=== PATIENT | female | born 1960 | race Caucasian/White ===

== ENCOUNTER 2019-11-15 16:21 | Outpatient (REF) | payer BC, SELFPAY ==
[2019-11-18 18:57] LABS: SARS-CoV-2 RNA Undetected (Undetected); SARS-CoV-2 Specimen Source Nasopharynx
== END 2019-11-15 16:41 ==
LOC: NCHCN 16:21
PROVIDERS: PCP Family Medicine; Visit Provider Nurse Practitioner Family
DX: Z11.59 Encounter for screening for other viral diseases (principal)
CPT/HCPCS: U0003

== ENCOUNTER 2019-11-22 15:43 | Emergency (ER) | payer BC, SELFPAY ==
[2019-11-22] VITALS (18 sets, daily range): BP systolic 135–155; BP diastolic 81–125; PULSE 61–86; RESP 13–24; TEMP 36.7; O2SAT 95–99
--- NOTE | 2019-11-22 16:02 | ED.GENADUL_ITS ---
Discharge Plan Disposition Patient Disposition: HOME Condition: Stable Discharge Details Chief Complaint: Chest Pain Clinical Impression: Chest wall pain, Pain in right shoulder Primary Care Provider: Usha Woodward ED Provider: Afsaneh Yepez Home Meds and New Rx's Prescriptions: Continued multivitamin [Daily Multi-Vitamin] 1 EACH tablet 1 ea PO DAILY RF: 0 calcium carbonate-vitamin D3 [Calcium 500 With D] 1 EACH tablet 1 ea PO DAILY RF: 0 ibuprofen [Advil] 100 mg Tablet 100 mg PO Q6H PRNRF: 0 Discharge Instructions Instructions: Shoulder Pain (ED), Chest Wall Pain (ED) Additional Instructions: Take [id number] Pepcid, Prilosec or Prevacid once daily for the next 2 weeks. Alternate tylenol and motrin as needed and directed for pain. You can apply [id number] Lidoderm patches to the affected areas as directed. Call your primary care doctor's office on Monday to schedule follow-up appointment for reevaluation and for referral for outpatient stress test if symptoms persist or worsen. Return to the emergency department with any worsening or concerning symptoms. Discharge Data Discharge Date/Time-TO BE ENTERED AT DEPARTURE: 11/22/19 18:28 Discharge Physician: Afsaneh Yepez Medical Decision Making 1555 -- 58-year-old female with no significant past medical history presents with intermittent substernal and left-sided chest pain and right shoulder pain for the past 2 days. She states the symptoms are worse at night and awaken her from sleep. EKG on arrival notes a rate of 61, sinus with no acute ST ischemic changes. Patient appears somewhat anxious. Substernal and left anterior inferior chest tender to palpation. Right trapezius tender to palpation. She has no focal deficits. Lungs are clear. She has no upper abdominal tenderness. Differential diagnosis includes ACS, GERD, PUD, cholelithiasis, cholecystitis, chest wall pain, pneumonia. History and presentation not consistent with PE or dissection. 1745 --labs and imaging reviewed and unremarkable. CT negative. Heart score 1. Wells score low. Pt denies any symptoms at present. She states she mainly feels symptoms that awake her from sleep at night. Discussed that her symptoms could be due to musculoskeletal as her pain is reproducible, GI as she has right shoulder pain and pain occurring when supine at night, or possibly stress or anxiety as she has felt stressed lately as her mother in law is staying at the [facility] where there are many COVID positive patients. She feels that stress or anxiety may be contributing to her symptoms. Patient states she feels good to go home. She is advised to call her primary care doctor on Monday morning to schedule a follow-up appointment for reevaluation and for referral for outpatient stress test if symptoms persist or worsen. Usual and customary return precautions given prior to discharge. Medical Records Medical records reviewed: Yes I reviewed the patient's medical records. Imaging Data Radiologic Study: Radiologist's impression: CT Chest With Contrast Exam date and time: 11/22/2019 4:50 PM Age: 58 years old Clinical indication: Other: R shoulder pain; Chest pain TECHNIQUE: Imaging protocol: Computed tomography of the chest with intravenous contrast. Other contrast: Catheter; COMPARISON: No relevant prior studies available. FINDINGS: Lungs: There is minimal atelectasis in the dependent portion of both lower lobes. No focal area of consolidation or suspicious ground-glass opacity is demonstrated. No pulmonary nodules demonstrated. Pleural space: Unremarkable. No pneumothorax. No pleural effusion. Heart: Unremarkable. No cardiomegaly. No pericardial effusion. Mediastinum: There is a small sliding-type hiatal hernia. Pulmonary arteries: The exam is not optimized for visualization of the pulmonary arteries however there is no evidence of pulmonary embolus. Aorta: Unremarkable. No aortic aneurysm or dissection. Lymph nodes: Unremarkable. No enlarged lymph nodes. Bones/joints: Unremarkable. No acute fracture. Soft tissues: Unremarkable. IMPRESSION: No acute findings. CT Abdomen And Pelvis With Contrast Exam date and time: 11/22/2019 4:50 PM Age: 58 years old Clinical indication: Other: R shoulder pain; Chest pain TECHNIQUE: Imaging protocol: Computed tomography of the abdomen and pelvis with intravenous contrast. Other contrast: Catheter; COMPARISON: No relevant prior studies available. FINDINGS: Liver: The liver is normal. Gallbladder and bile ducts: The gallbladder is normal. Pancreas: The pancreas is normal. Spleen: The spleen is normal. Adrenals: The adrenal glands are normal. Kidneys and ureters: There is a well-circumscribed right lower pole 7 mm low-density lesion which is too small to characterize. There are multiple sub 5 mm low-density left renal lesions which are too small to characterize. No renal calculus or hydronephrosis on either side. Stomach and bowel: Unremarkable. No obstruction. No mucosal thickening. Appendix: A normal appendix is identified. Intraperitoneal space: Unremarkable. No free air. No significant fluid collection. Vasculature: The aorta is normal. Lymph nodes: Unremarkable. No enlarged lymph nodes. Bladder: Unremarkable as visualized. Reproductive: Unremarkable as visualized. Bones/joints: There is a well circumscribed 3.5 cm focus of sclerosis and prominent trabeculation in the left iliac bone most consistent with a hemangioma. Otherwise no suspicious lytic or sclerotic bone lesions are seen. Soft tissues: Unremarkable. IMPRESSION: No acute findings. Lab Data Lab results reviewed: Yes I reviewed the patient's lab results. Labs: Laboratory Tests Range/Units 11/22/19 11/22/19 11/22/19 16:10 16:10 17:12 WBC (4.4-10.8) k/cumm 5.94 RBC (4.00-5.20) m/cumm 4.97 Hgb (12.0-15.5) g/dL 15.4 Hct (36.0-46.0) % 44.9 MCV (80-95) fL 90.3 MCH (27.0-33.0) pg 31.0 MCHC (32.0-36.0) g/dL 34.3 RDW (11.7-14.6) % 13.8 Plt Count (130-400) x1000/uL 271 MPV (8.0-11.0) fL 10.1 Immature Gran % % 0.2 Neutrophils % 40.3 Lymphocytes % 50.0 Monocytes % 7.1 Eosinophils % 1.9 Basophils % 0.5 Absolute Neutrophils (1.2-6.7) k/cumm 2.40 Absolute Lymphocytes (1.2-3.4) k/cumm 2.97 Absolute Monocytes (0.11-0.7) k/cumm 0.42 Absolute Eosinophils (0.0-0.7) k/cumm 0.11 Absolute Basophils (0.0-0.2) k/cumm 0.03 Sodium (136-145) mmol/L 141 Potassium (3.5-5.1) mmol/L 3.5 Chloride (98-107) mmol/L 104 Carbon Dioxide (21.0-32.0) mmol/L 28.5 Anion Gap (3-11) mmol/L 8.5 BUN (7-18) mg/dL 15 Creatinine (0.55-1.02) mg/dL 0.81 Estimated GFR/1.73 m2 (mL/min/1.73m2) >= 60.00 Glucose (74-106) mg/dL 87 Calcium (8.5-10.1) mg/dL 10.0 Magnesium (1.8-2.4) mg/dL 2.2 Total Bilirubin (0.2-1.0) mg/dL 0.5 AST (15-37) U/L 19 ALT (14-59) U/L 40 Alkaline Phosphatase (46-116) U/L 69 Troponin I (<0.06) ng/Ml < 0.05 Total Protein (6.4-8.2) g/dL 8.0 Albumin (3.4-5.0) g/dL 4.4 Lipase (73-393) U/L 159 Urine Color (Yellow) Yellow Urine Clarity (Clear) Clear Urine pH (5-8) 7.0 Ur Specific [place] (1.005-1.025) 1.015 Urine Protein (Negative) mg/dL Negative Urine Ketones (Negative) mg/dL Negative Urine Blood (Negative) Trace-intact H Urine Nitrite (Negative) Negative Urine Bilirubin (Negative) Negative Urine Urobilinogen (Up TO 0.2) EU/dL 0.2 Ur Leukocyte Esterase (Negative) Negative Urine RBC (0-2) HPF 0-2 Urine WBC (0-5) HPF Negative Ur Epithelial Cells (Negative) HPF Negative Urine Crystals (Negative) HPF Negative Urine Bacteria (Negative) HPF Negative Urine Casts (Negative) LPF Negative Urine Mucus (Negative) Negative Urine Other (Negative) Negative Ur Culture Indicated? No Urine Glucose (Negative) mg/dL Negative ECG Data Attestation: I personally reviewed and interpreted this ECG (s) as follows: Interpretation: Rate of 61, sinus, no acute ST elevation or depression. MO 128. QTc 411. QRS 90. HPI General Mode of arrival: ambulatory . Date/Time Provider Initiated Documentation: 11/22/19 15:46 . Limitations to Documentation: no limitations . Information obtained by: patient . HPI Narrative: Patient is a 58-year-old female with no significant past medical history who presents with a complaint of substernal and left-sided chest pain and right shoulder pain for the past 2 days. She states the pain is intermittent, dull and occasionally sharp and occurring at random. She does feel that the area is slightly tender to palpation. She denies any known injury. She does admit to intermittent nausea but denies any vomiting, diarrhea, dizziness, shortness of breath, fever, cough. She states she does have a history of gallstones but stated that she had had right-sided abdominal pain with this in the past. She took ibuprofen for pain this morning with relief. She denies any recent travel, recent surgery, leg pain or swelling. She states she was tested for coronavirus last week due to a history of fever and cough without a report of travel but exposure to prison and she tested negative. Related Data Home Medications Medication Instructions Recorded Confirmed calcium carbonate-vitamin D3 1 ea PO DAILY 11/24/15 11/22/19 [Calcium 500 With D] multivitamin [Daily Multi-Vitamin] 1 ea PO DAILY 11/24/15 11/22/19 ibuprofen [Advil] 100 mg PO Q6H PRN 11/22/19 11/22/19 Allergies Allergy/AdvReac Type Severity Reaction Status Date / Time No Known Allergies Allergy Unverified 11/22/19 15:53 General Stated Complaint: Chest Pain NICHELLE: 3 Review of Systems All systems reviewed & are unremarkable except as noted in HPI and below Constitutional Constitutional: Reports as per HPI, Denies chills and Denies fever(s) Eyes Eyes: Denies blurry vision ENT Ears, Nose, Mouth, and Throat: Denies dizziness, Denies sore throat and Denies throat swelling Cardiovascular Cardiovascular: Reports chest pain and Denies dyspnea Respiratory Respiratory: Denies cough and Denies dyspnea Gastrointestinal Gastrointestinal: Denies abdominal pain, Denies diarrhea and Denies vomiting Genitourinary Genitourinary: Denies hematuria and Denies dysuria Musculoskeletal Musculoskeletal: Denies back pain and Denies numbness Integumentary/Breasts Skin/Breast: Denies lesions and Denies rash Neurologic Neurologic: Denies dizziness, Denies localized weakness and Denies numbness Allergic/Immunologic Allergic/Immunologic: Denies throat swelling [facility] Medical History (Updated 11/22/19 @ 18:13 by Afsaneh Yepez DO) No significant past medical history (Acute) Surgical History (Updated 11/22/19 @ 16:59 by Afsaneh Yepez DO) No significant past surgical history (Acute) Social History Smoking/Tobacco Use Status: Former Tobacco Use Alcohol Intake: current Alcohol Intake frequency: a few times a week Drug use: Never Substance use type: does not use Do you feel safe at home: Yes Do you feel safe in your relationship?: Yes Exam Const General: cooperative, healthy appearing and no acute distress [facility] Head: normal to inspection Face and sinus: normal facial exam Eyes General: appearance normal, both eyes and all related structures EOM: EOM intact bilaterally Neck Neck: normal visual inspection and No submandibular swelling Lymphatic: no lymphadenopathy noted Chest Chest: normal inspection of the chest and no tenderness Chest/axillae images: 1. Tenderness to palpation to ribs just below her left breast. There is no edema, ecchymosis, erythema, step-off, rash or crepitus. Resp Effort & Inspection: normal respiratory effort and able to speak in complete sentences Auscultation: clear to auscultation bilaterally Cardio Rate: regular rate Rhythm: regular rhythm GI Inspection: normal to inspection Palpation: soft, not firm, not rigid and nontender Auscultation: normal bowel sounds Back/Spine/Pelvis Cervical Spine: cervical muscular tenderness (Tender to palpation overlying right trapezius muscle. No erythema, edema, ) Skin General skin exam: no rashes or lesions noted Neuro General: patient alert, patient awake and patient oriented x3 Cognition: normal cognition Speech: speech normal Motor: muscle tone normal throughout and strength 5/5 throughout Sensory Exam: no sensory deficits noted Extrem General: normal to inspection, full ROM, capillary refill normal, no calf tenderness bilaterally and no edema Psych Appearance: grossly normal Mental Status: mental status grossly normal Speech and Movement: speech and movement normal Affect: normal affect Course Vital Signs Vital signs: Vital Signs Temperature 98.1 F 11/22/19 15:47 Pulse 69 11/22/19 15:47 Respiratory Rate 14 11/22/19 15:47 Blood Pressure 155/83 H 11/22/19 15:47 Pulse Oximetry 99 11/22/19 15:47 Temperature 98.1 F 11/22/19 15:47 Temperature Source Temporal Artery Scan 11/22/19 15:47 Pulse 69 11/22/19 15:47 Respiratory Rate 21 11/22/19 15:55 Respiratory Effort Non-Labored 11/22/19 15:55 Respiratory Depth Normal 11/22/19 15:55 Respiratory Pattern Normal 11/22/19 15:55 Blood Pressure 155/83 H 11/22/19 15:47 Blood Pressure Position Supine 11/22/19 15:47 Pulse Oximetry 99 11/22/19 15:47 Oxygen Delivery Method Room Air 11/22/19 15:47 Oxygen Flow Rate 0 11/22/19 15:47 Pain Level 2 11/22/19 15:47
--- NOTE | 2019-11-22 16:29 | DI.CT_ITS ---
EXAM: CT CHEST/ABD/PEL W CLINICAL HISTORY: chest pain, R shoulder pain. TECHNIQUE: Imaging Protocol: Axial computed tomography images with coronal and sagittal reformatted images were created and reviewed CONTRAST MATERIAL: Intravenous: Omnipaque 350 Contrast volume:100 ml Oral: no COMPARISON: No exams were available for comparison FINDINGS: CHEST: Thyroid: Normal Tracheobronchial tree: Patent where visualized. Mediastinum and Karen: No dominant adenopathy or fluid collection. Pulmonary parenchyma: Mild dependent changes. No consolidation or dominant measurable mass. Pleura: No effusion or pneumothorax. Lymph nodes: Within normal limits. Aorta: Thoracic portion non-dilated. Heart: Normal size. No pericardial effusion Bones: Unremarkable ABDOMEN: Liver: Normal density. No measurable mass. Gallbladder and biliary tract: No radiodense calculus or dilation. Pancreas: Normal density, no abnormal calcifications or inflammatory process. Spleen: Normal. Kidneys: Normal size, contour and axis. No radiodense stones or obstructive uropathy. No masses seen. Tiny bilateral cysts. Adrenal glands: No masses seen. Aorta: Abdominal portion non-dilated. Lymph nodes: Within normal limits. PELVIS: Bladder: Symmetric distention, no gross wall thickening. Bowel: No obstruction or bowel wall thickening. Peritoneal cavity: No ascites, collection or mesenteric inflammatory response. Bones: Sclerotic lesion in the left ilium could represent a hemangioma. Mild degenerative disc seaman es in the lumbar spine. Reproductive organs: Within normal limits. IMPRESSION: No acute abnormalities identified in the chest, abdomen, or pelvis. DATA REPOSITORY: All CT scans at this facility are submitted to the National Radiology Data Registry (NRDR) Dose Index Registry (DIR) with the [employer] (ACR). RADIATION OPTIMIZATION: All CT scans at this facility use at least one of these dose optimization te chniques: automated exposure control; mA and/or kV adjustment per patient size (includes targeted exa ms where dose is matched to clinical indication); or iterative reconstruction.
[2019-11-22] MEDS: FAMOTIDINE 20 MG/50 ML BAG 200 MG IVPB (16:41)
[2019-11-22 16:42] LABS: Abs Immature Grans 0.01 k/cumm (0.0-0.09); Absolute Basophil Count 0.03 k/cumm (0.0-0.2); Absolute Eosinophil Count 0.11 k/cumm (0.0-0.7); Absolute Lymphocyte Count 2.97 k/cumm (1.2-3.4); Absolute Monocyte Count 0.42 k/cumm (0.11-0.7); Basophils % 0.5; Eosinophils % 1.9; HCT 44.9 % (36.0-46.0); HGB 15.4 g/dL (12.0-15.5); Immature Grans % 0.2 %; Mean Corp. HGB Concentration 34.3 g/dL (32.0-36.0); Mean Corpuscular Volume 90.3 fL (80-95); Mean Platelet Volume 10.1 fL (8.0-11.0); Monocytes % 7.1; Neutrophils % 40.3; Platelet Count 271 x1000/uL (130-400); RBC 4.97 m/cumm (4.00-5.20); RBC Distribution Width 13.8 % (11.7-14.6); White Blood Cell Count 5.94 k/cumm (4.4-10.8)
[2019-11-22] MEDS: Normal Saline 1,000 ML 1000 ML IV (16:42)
[2019-11-22] MEDS: Lidocaine 5% Patch 1 PATCH TP (16:42)
[2019-11-22] MEDS: Omnipaque 350 MG/ML 100 ML BTL IJ (16:54)
[2019-11-22] MEDS: Normal Saline Flush 10 ML SYR IVP (16:56)
[2019-11-22 17:04] LABS: ALT 40 U/L (14-59); AST 19 U/L (15-37); Albumin 4.4 g/dL (3.4-5.0); Alkaline Phosphatase 69 U/L (46-116); Anion Gap 8.5 mmol/L (3-11); BUN 15 mg/dL (7-18); Bilirubin, Total 0.5 mg/dL (0.2-1.0); CO2 28.5 mmol/L (21.0-32.0); CREATININE 0.81 mg/dL (0.55-1.02); Chloride 104 mmol/L (98-107); Glucose 87 mg/dL (74-106); Lipase 159 U/L (73-393); Magnesium 2.2 mg/dL (1.8-2.4); Potassium 3.5 mmol/L (3.5-5.1); Sodium 141 mmol/L (136-145)
[2019-11-22 17:08] LABS: Troponin I < 0.05 ng/Ml (<0.06)
--- NOTE | 2019-11-22 17:23 | DI.VRAD_ITS ---
PROCEDURE INFORMATION: Exam: CT Chest With Contrast Exam date and time: 11/22/2019 4:50 PM Age: 58 years old Clinical indication: Other: R shoulder pain; Chest pain TECHNIQUE: Imaging protocol: Computed tomography of the chest with intravenous contrast. Other contrast: Catheter; COMPARISON: No relevant prior studies available. FINDINGS: Lungs: There is minimal atelectasis in the dependent portion of both lower lobes. No focal area of consolidation or suspicious ground-glass opacity is demonstrated. No pulmonary nodules demonstrated. Pleural space: Unremarkable. No pneumothorax. No pleural effusion. Heart: Unremarkable. No cardiomegaly. No pericardial effusion. Mediastinum: There is a small sliding-type hiatal hernia. Pulmonary arteries: The exam is not optimized for visualization of the pulmonary arteries however there is no evidence of pulmonary embolus. Aorta: Unremarkable. No aortic aneurysm or dissection. Lymph nodes: Unremarkable. No enlarged lymph nodes. Bones/joints: Unremarkable. No acute fracture. Soft tissues: Unremarkable. IMPRESSION: No acute findings. PROCEDURE INFORMATION: Exam: CT Abdomen And Pelvis With Contrast Exam date and time: 11/22/2019 4:50 PM Age: 58 years old Clinical indication: Other: R shoulder pain; Chest pain TECHNIQUE: Imaging protocol: Computed tomography of the abdomen and pelvis with intravenous contrast. Other contrast: Catheter; COMPARISON: No relevant prior studies available. FINDINGS: Liver: The liver is normal. Gallbladder and bile ducts: The gallbladder is normal. Pancreas: The pancreas is normal. Spleen: The spleen is normal. Adrenals: The adrenal glands are normal. Kidneys and ureters: There is a well-circumscribed right lower pole 7 mm low-density lesion which is too small to characterize. There are multiple sub 5 mm low-density left renal lesions which are too small to characterize. No renal calculus or hydronephrosis on either side. Stomach and bowel: Unremarkable. No obstruction. No mucosal thickening. Appendix: A normal appendix is identified. Intraperitoneal space: Unremarkable. No free air. No significant fluid collection. Vasculature: The aorta is normal. Lymph nodes: Unremarkable. No enlarged lymph nodes. Bladder: Unremarkable as visualized. Reproductive: Unremarkable as visualized. Bones/joints: There is a well circumscribed 3.5 cm focus of sclerosis and prominent trabeculation in the left iliac bone most consistent with a hemangioma. Otherwise no suspicious lytic or sclerotic bone lesions are seen. Soft tissues: Unremarkable. IMPRESSION: No acute findings. Dictated and Authenticated by: Raleigh Valenzuela MD. Ordering:GABRIELLA Shelby MD
[2019-11-22 17:30] LABS: Bilirubin Negative (Negative); Blood Trace-intact (Negative); Clarity Clear (Clear); Glucose Negative (Negative); Ketones Negative (Negative); Leukocyte Esterase Negative (Negative); Nitrite Negative (Negative); Specific Gravity 1.015 (1.005-1.025); Urobilinogen 0.2 EU/dL (Up TO 0.2)
[2019-11-22 17:36] LABS: Bacteria Negative HPF (Negative); C & S Indicated? No; Casts Negative LPF (Negative); Crystals Negative HPF (Negative); Epithelial Cells Negative HPF (Negative); Mucus Negative (Negative); Other Cells Negative (Negative); RBC 0-2 HPF (0-2); WBC Negative HPF (0-5)
[2019-11-22] MEDS: Ketorolac 30 MG/ML VIAL IVP (17:37)
== END 2019-11-22 18:28 | disposition home or self-care (01) ==
PROVIDERS: Emergency Provider Physician Assistant; PCP Family Medicine
DX: M25.511 Pain in right shoulder (principal); R07.89 Other chest pain
CPT/HCPCS: 74177; 80053; 83690; 93005; 96361; 96365; 96375; 99285; 71260; 81003; 81015; 83735; 84484; 85025; 93010; 99284; J1885; J3490

== ENCOUNTER 2020-06-09 01:17 | Outpatient (CLI) | payer BC, SELFPAY ==
--- NOTE | 2020-06-09 12:25 | DI.MAMMO_ITS ---
EXAM: MAMMO SCREENING CLINICAL HISTORY: SCREENING,Z12.39, FAMILY H/O BREAST CA TECHNIQUE: Mammograms were interpreted according to the usual protocol including computer analysis w Yakaz system, tomosynthesis and C-view imaging. COMPARISON: FINDINGS: The breasts are heterogeneously dense. No dominant mass or clumped microcalcification is identified in either breast. The current examination is compared with previous examinations including May 15 and there has been no gross interval change in appearance in comparison with the prior studies. IMPRESSION: No specific evidence of malignancy at this time. Routine screening examinations are suggested due to the family history of breast carcinoma. BI-RADS Category 1 - Negative Breast Density - Category C - Heterogeneously dense
== END 2020-06-09 01:37 ==
PROVIDERS: PCP Family Medicine; Visit Provider Family Medicine
DX: Z12.31 Encounter for screening mammogram for malignant neoplasm of breast (principal); Z80.3 Family history of malignant neoplasm of breast
CPT/HCPCS: 77063; 77067

== ENCOUNTER 2021-02-19 08:19 | Outpatient (REF) | payer BC, SELFPAY ==
--- NOTE | 2021-02-19 14:15 | PAPFT_PTH ---
PATIENT: Zoe Hwang LOC: [facility]#:[id number] AGE/SX: 60/F ROOM: RE02/19/[address]: Usha Woodward : 1960 BED: DIS: 02/19/2021 SPEC #: [id number] RECD: 02/20/21 11:39 STATUS: CURLY RECindy #: [id number] JOSESITO: 02/19/21 14:[address]: Usha Woodward DEPT: [facility] Cytology RECD BY: Zoe Jurado Tissues: 1 - CX/ENDOCX FOR PAP SMEARS Procedures: PAP THIN PREP/UVM Screening HPV DNA PROBE Comments: [id number]
== END 2021-02-19 08:20 | disposition home or self-care (01) ==
LOC: NCHCN 08:19
PROVIDERS: PCP Family Medicine; Visit Provider Family Medicine
DX: Z00.00 Encounter for general adult medical examination without abnormal findings (principal); Z12.4 Encounter for screening for malignant neoplasm of cervix; Z01.419 Encounter for gynecological examination (general) (routine) without abnormal findings; Z11.51 Encounter for screening for human papillomavirus (HPV)
CPT/HCPCS: 88142; 87624

== ENCOUNTER 2021-08-21 12:22 | Outpatient (REF) | payer BC, SELFPAY ==
[2021-08-21 18:14] LABS: Abs Immature Grans 0.08 10^3/uL (0.0-0.06); Absolute Basophil Count 0.04 10^3/uL (0.0-0.2); Absolute Eosinophil Count 0.03 10^3/uL (0.0-0.7); Basophils % 0.3; Eosinophils % 0.2; HCT 46.6 % (36.0-46.0); Immature Grans % 0.5; MCH 30.4 pg (27.0-33.0); MCHC 32.2 % (32.0-36.0); MCV 94.3 fL (80-95); MPV 10.5 fL (8.0-11.0); Monocytes % 6.4; Neutrophils % 74.6; Nucleated RBC 0 %; Platelet Count 293 10^3/uL (130-400); RBC 4.94 10^6/uL (3.93-5.22); RDW 13.2 % (11.7-14.6); RDW-SD 46.2 fL; WBC 14.75 10^3/uL (4.4-10.8)
[2021-08-21 18:19] LABS: Absolute Lymphocyte Count 2.66 10^3/uL (1.2-3.4); Absolute Monocyte Count 0.94 10^3/uL (0.1-0.8)
[2021-08-21 18:25] LABS: ALT 37 U/L (14-59); AST 22 U/L (15-37); Albumin 4.3 g/dL (3.4-5.0); Alkaline Phosphatase 76 U/L (46-116); Anion Gap 8.5 mmol/L (3-11); BUN 14 mg/dL (7-18); Bilirubin, Total 1.2 mg/dL (0.2-1.0); C-Reactive Protein 19.65 mg/dL (0.0-0.3); CO2 29.5 mmol/L (21.0-32.0); CREATININE 0.9 mg/dL (0.55-1.02); Calcium 9.5 mg/dL (8.5-10.1); Chloride 103 mmol/L (98-107); Glucose 97 mg/dL (74-106); Potassium 4.2 mmol/L (3.5-5.1); Sodium 141 mmol/L (136-145); Total Protein 7.5 g/dL (6.4-8.2)
== END 2021-08-21 12:23 | disposition home or self-care (01) ==
LOC: NCHCN 12:22
PROVIDERS: PCP Family Medicine; Visit Provider Family Medicine
DX: R10.31 Right lower quadrant pain (principal)
CPT/HCPCS: 80053; 85025; 86140; 87086

== ENCOUNTER 2021-08-24 00:54 | Outpatient (CLI) | payer BC, SELFPAY ==
--- NOTE | 2021-08-24 13:14 | DI.CT_ITS ---
Exam(s) CT ABDOMEN PELVIS W EXAM: CT ABDOMEN PELVIS W INDICATION: RLQ ABD PAIN, R10.31, ELEVATED WBC/ESR, HEMATURIA, ? APPENDICITIS. COMPARISON: CT CT CHEST/ABD/PEL W from 11/22/2019 TECHNIQUE: FINDINGS: CT examination of the abdomen and pelvis was performed with a bolus infusion of 100 cc of Omnipaque 3 50. Oral contrast was also administered. Images obtained through the lung bases are unremarkable wi th an incidental 3-4 millimeter mean diameter left basilar pulmonary nodule.. CT follow-up recommend ed in 12 months for a smoker. The liver is unremarkable in appearance. Gallbladder and bile ducts are CT normal. Pancreas appears normal. Spleen is unremarkable in appearance. Adrenals appear normal. The kidneys are unremarkable with no evidence of hydronephrosis, nephrolithiasis, or renal mass.. Ur inary bladder is essentially empty.. Abdominal aorta is of normal diameter and no major vascular abnormality is seen. Small fat containing umbilical hernia. No other abdominal wall hernia seen.. No abdominal or pelvic adenopathy. [employer] structures appear intact. The appendix is thick-walled and measures up to about 13 millimeters in diameter, there is subtle Per i appendiceal fat edema. Findings are suspicious for an early acute appendicitis. No evidence of ab scess or perforation. Slight prominence of right lower quadrant mesenteric lymph nodes also noted.. No evidence of diverticulitis or bowel obstruction. IMPRESSION: The appearance of the appendix and surrounding tissues is suspicious for very early acute appendiciti s.. RADIATION DOSE DELIVERED: 976.55mGy.cm Total DLP 976.55mGy.cm Total DLP 18.95mGy CTDIvol RADIATION OPTIMIZATION: All CT scans at this facility use at least one of these dose optimization te chniques: automated exposure control; mA and/or kV adjustment per patient size (includes targeted exa ms where dose is matched to clinical indication); or iterative reconstruction.
[2021-08-24] MEDS: Omnipaque 350 MG/ML 100 ML BTL IJ (13:25)
== END 2021-08-24 01:14 ==
PROVIDERS: PCP Family Medicine; Visit Provider Family Medicine
DX: R10.31 Right lower quadrant pain (principal); R93.3 Abnormal findings on diagnostic imaging of other parts of digestive tract
CPT/HCPCS: 74177; J3490

== ENCOUNTER 2021-09-07 15:46 | Observation (INO) | payer BC, SELFPAY ==
[2021-09-07 15:50] VITALS: BP 125/87; PULSE 80; RESP 14; TEMP 36.3; O2SAT 99
--- NOTE | 2021-09-07 16:02 | DI.CT_ITS ---
Exam(s) CT ABDOMEN PELVIS W EXAM: CT ABDOMEN PELVIS W CLINICAL HISTORY: RLQ pain, recent 'early appy'. TECHNIQUE: Imaging Protocol: Axial computed tomography images with coronal and sagittal reformatted images were created and reviewed CONTRAST MATERIAL: Intravenous: Omnipaque 100cc Oral: None COMPARISON: CT CT ABDOMEN PELVIS W from 08/24/2021 FINDINGS: VISUALIZED LUNG BASES: No nodules nor pleural effusions evident. ABDOMEN: There is no ascites. LIVER: There are no focal hepatic lesions evident. No evidence of hepatic abscess. No air-gas in th e intrahepatic portal veins. GALLBLADDER/BILIARY: No obvious gallbladder pathology. CBD is not dilated. PANCREAS: No evidence of pancreatic mass nor dilatation of the pancreatic duct. SPLEEN: Spleen is not enlarged. No obvious intrasplenic lesions. Splenic and portal veins are paten t. ADRENALS: There are no significant adrenal masses. KIDNEYS:No cysts evident. No solid renal masses. No calculi nor hydronephrosis.. ABDOMINAL AORTA: Abdominal aorta is not enlarged. LYMPH NODES:There is no retroperitoneal nor paraaortic adenopathy. ABDOMINAL WALL: No evidence of significant anterior abdominal wall nor inguinal hernia. GI: The appendix is again noted to be thickened, similar to the previous study but without evidence p eriappendiceal streaking. No intraluminal appendicular lith. There is no intraluminal air within th e appendix. Maximum diameter 1.1 cm. No adjacent free air to suggest rupture. No free fluid in the dependent aspect of the pelvis. No regional adenopathy evident in the mesoappendix. Terminal ileum appears unremarkable. PELVIS: GI: As above. no evidence of sigmoid diverticulitis. LYMPH NODES: There is no intrapelvic nor inguinal adenopathy. REPRODUCTIVE: Uterus and adnexal regions appear unremarkable. URINARY BLADDER: No calculi nor obvious masses evident OSSEOUS: No significant osseous lesions. IMPRESSION: 1. Compared to the prior CT scan of 08/24/2021 there is again noted an abnormally thickened appendix, similar to the prior study. There is presently no periappendiceal streaking and no evidence to sugg est rupture. No free fluid no lymphadenopathy evident in the pelvis. 2. No evidence of air in the portal venous system and no evidence of intrahepatic abscess. 3. There is no ascites. RADIATION DOSE DELIVERED: 1,003.36mGy.cm Total DLP DATA REPOSITORY: All CT scans at this facility are submitted to the National Radiology Data Registry (NRDR) Dose Index Registry (DIR) with the [employer] (ACR). RADIATION OPTIMIZATION: All CT scans at this facility use at least one of these dose optimization te chniques: automated exposure control; mA and/or kV adjustment per patient size (includes targeted exa ms where dose is matched to clinical indication); or iterative reconstruction.
[2021-09-07 16:06] LABS: Lactate 0.8 mmol/L (0.6-1.4)
[2021-09-07 16:08] LABS: Abs Immature Grans 0.03 10^3/uL (0.0-0.06); Absolute Basophil Count 0.06 10^3/uL (0.0-0.2); Absolute Eosinophil Count 0.06 10^3/uL (0.0-0.7); Absolute Monocyte Count 0.44 10^3/uL (0.1-0.8); Absolute Neutrophil Count 3.61 10^3/uL (1.2-6.7); Basophils % 0.8; Eosinophils % 0.8; HCT 47.6 % (36.0-46.0); HGB 15.6 g/dL (11.2-15.7); Immature Grans % 0.4; Lymphocytes % 41.7; MCH 29.9 pg (27.0-33.0); MCHC 32.8 % (32.0-36.0); MCV 91.4 fL (80-95); MPV 9.8 fL (8.0-11.0); Monocytes % 6.1; Neutrophils % 50.2; Nucleated RBC 0 %; Platelet Count 337 10^3/uL (130-400); RBC 5.21 10^6/uL (3.93-5.22); RDW 12.6 % (11.7-14.6); RDW-SD 42.3 fL
[2021-09-07] MEDS: Normal Saline 1,000 ML 125 ML IV (16:17)
--- NOTE | 2021-09-07 16:18 | NUR.NOTE ---
Nursing Note:Pt resting on stretcher, IVF infusing, denies need for pain intervention. equip tech to room, oral contrast and instructions given to patient, cont. to monitor.
[2021-09-07 16:26] LABS: ALT 34 U/L (14-59); AST 18 U/L (15-37); Albumin 4.6 g/dL (3.4-5.0); Alkaline Phosphatase 68 U/L (46-116); Anion Gap 9.1 mmol/L (3-11); BUN 18 mg/dL (7-18); Bilirubin, Total 0.9 mg/dL (0.2-1.0); CO2 27.9 mmol/L (21.0-32.0); CREATININE 0.9 mg/dL (0.55-1.02); Calcium 9.8 mg/dL (8.5-10.1); Chloride 104 mmol/L (98-107); Glucose 88 mg/dL (74-106); Potassium 3.5 mmol/L (3.5-5.1); Sodium 141 mmol/L (136-145); Total Protein 8.2 g/dL (6.4-8.2)
[2021-09-07 16:43] LABS: C-Reactive Protein 0.15 mg/dL (0.0-0.3)
--- NOTE | 2021-09-07 17:30 | NUR.NOTE ---
Nursing Note: Pt to radiology via stretcher with tech for abd. CT scan, no new complaints, pain cont. to be well controlled at this time.
[2021-09-07] MEDS: Omnipaque 350 MG/ML 50 ML BTL PO (17:34)
[2021-09-07] MEDS: Omnipaque 350 MG/ML 100 ML BTL IV (17:34)
[2021-09-07] MEDS: Normal Saline Flush 10 ML SYR IVP (17:35)
[2021-09-07 17:48] VITALS: BP 137/88; PULSE 68; RESP 18; TEMP 36.6; O2SAT 100
--- NOTE | 2021-09-07 17:49 | NUR.NOTE ---
Nursing Note: Pt return from radiology after CT scan, VSS, NAD noted, ambulatory to BR for urine sample, cont. to monitor.
[2021-09-07 18:04] LABS: Bilirubin Negative (Negative); Blood Trace-lysed (Negative); Clarity Clear (Clear); Glucose Negative (Negative); Ketones Negative (Negative); Leukocyte Esterase Negative (Negative); Nitrite Negative (Negative); Specific Gravity 1.015 (1.005-1.025); Urobilinogen 0.2 EU/dL (Up TO 0.2)
--- NOTE | 2021-09-07 18:04 | DI.VRAD_ITS ---
PROCEDURE INFORMATION: Exam: CT Abdomen And Pelvis With Contrast Exam date and time: 09/07/2021 5:32 PM Age: 60 years old Clinical indication: Other: Rlq pain, recent 'early appy'; Additional info: Rlq pain, recent 'early appy' TECHNIQUE: Imaging protocol: Computed tomography of the abdomen and pelvis with contrast. Radiation optimization: All CT scans at this facility use at least one of these dose optimization techniques: automated exposure control; mA and/or kV adjustment per patient size (includes targeted exams where dose is matched to clinical indication); or iterative reconstruction. Contrast material: OMNIPAQUE 350; Contrast volume: 100 ml; Contrast route: INTRAVENOUS (IV); Other contrast: Oral, omnipaqu 350, 900; COMPARISON: CT ABDOMEN PELVIS W 08/24/2021 1:08 PM FINDINGS: Diaphragm: There may be a tiny sliding hiatal hernia, new since prior study. Liver: Normal. No mass. Gallbladder and bile ducts: Normal. No calcified stones. No ductal dilation. Pancreas: The pancreas is mildly atrophic, but otherwise appears unremarkable without focal lesion or evidence of acute inflammation. Spleen: Normal. No splenomegaly. Adrenal glands: Normal. No mass. Kidneys and ureters: There are multiple subcentimeter low-dense renal lesions which are too small to characterize but likely represent benign cysts. No renal or ureteral stones are identified. There is no hydronephrosis or hydroureter. Stomach and bowel: There is no evidence of small or large bowel inflammation. There is no evidence for bowel obstruction. Appendix: The appendix is dilated to 1.1 cm diameter, as seen on image 70, series 4. This measured 1.3 cm on prior study. There is wall thickening of the appendix as well as the cecum near the origin of the appendix, which appears mildly improved from prior study. There is no clear fat stranding around the appendix. No focal fluid collection or extraluminal air is identified. Intraperitoneal space: There is no ascites or free intraperitoneal air. Vasculature: Unremarkable. No abdominal aortic aneurysm. Lymph nodes: Unremarkable. No enlarged lymph nodes. Urinary bladder: No bladder stones are identified. Reproductive: Unremarkable as visualized. Bones/joints: Unremarkable. No acute fracture. Soft tissues: Unremarkable. IMPRESSION: Findings of mild uncomplicated appendicitis which appear improved since study dated 08/24/2021. COMMENT: THIS REPORT CONTAINS FINDINGS THAT MAY BE CRITICAL TO PATIENT CARE. The exam findings were verbally communicated by me to GIOVANI HESS via telephone conference at 6:03 PM EST on 09/07/2021. The findings were acknowledged and understood. Dictated and Authenticated by: Kevyn Velázquez MD. Ordering:EUGENIO Pereira MD
--- NOTE | 2021-09-07 18:06 | ED.GENADUL_ITS ---
Discharge Plan Disposition Patient Disposition: [facility] INPATIENT Condition: Stable Discharge Details Clinical Impression: Appendicitis Primary Care Provider: Usha Woodward ED Provider: Randall Mcdaniel Home Meds and New Rx's Prescriptions: No Action multivitamin [Daily Multi-Vitamin] 1 EACH tablet 1 ea PO DAILY RF: 0 calcium carbonate-vitamin D3 [Calcium 500 With D] 1 EACH tablet 1 ea PO DAILY RF: 0 Advil 100 mg Tablet 100 mg PO Q6H PRNRF: 0 Medical Decision Making 60-year-old female referred from surgery clinic. She had been seen at [facility] urgent care on August 24 where she was diagnosed with early appendicitis, placed on oral antibiotics for 1 week and referred to general surgery clinic. She finished antibiotics 1 week ago and had persistent right lower quadrant discomfort. Today in clinic there was concern for persistent appendicitis which the patient was referred to the ER. IV placed and screening labs obtained, patient referred for imaging. Patient's white count is 7, the remainder of the CBC is reassuring. Lactic acid 0.8, unremarkable chemistries. CT reveals mild appendicitis with a diameter of approximately 1.1 cm. There is mild surrounding fat stranding. No evidence of abscess. Case discussed with Dr. Mackey and patient to be admitted. [facility] General Mode of arrival: ambulatory . Date/Time Provider Initiated Documentation: 09/07/21 15:46 . Limitations to Documentation: no limitations . Information obtained by: patient . History of Present Illness 60 year old F presents to the emergency department with the chief complaint of Right lower quadrant pain, persistent, described as mild and moderate, Quality is described as dull and constant, and is localized to the abdomen. Patient reports no radiation. Patient started experiencing this day(s) and it has been constant. No relieving factors improve symptom(s), No exacerbating factors reported . Patient notes no other symptoms.. Patient did receive the following treatments prior to arrival, other (Finished antibiotics) Related Data Home Medications Medication Instructions Recorded Confirmed calcium carbonate-vitamin D3 1 ea PO DAILY 11/24/15 09/07/21 [Calcium 500 With D] multivitamin [Daily Multi-Vitamin] 1 ea PO DAILY 11/24/15 09/07/21 Advil 100 mg PO Q6H PRN 11/22/19 09/07/21 Allergies Allergy/AdvReac Type Severity Reaction Status Date / Time sulfamethoxazole Allergy Intermediate unknown Verified 09/07/21 15:54 [From Bactrim] trimethoprim [From Bactrim] Allergy Intermediate unknown Verified 09/07/21 15:54 General Stated Complaint: Abd Prob NICHELLE: 3 Review of Systems Narrative: 8 systems reviewed and otherwise negative PFSH All Active Problems (Updated 09/07/21 @ 18:10 by Randall Mcdaniel MD) Appendicitis (Acute) Abdominal pain (Acute) Medical History Head ache History of shingles Hyperlipidemia Neck pain No significant past medical history Urge incontinence Surgical History No significant past surgical history Social History Smoking/Tobacco Use Status: Former Tobacco Use Smoking risk assessment performed?: Yes Alcohol Intake: current Alcohol Intake frequency: a few times a week Drug use: Never Substance use type: does not use Current gender identity: female Do you feel safe at home: Yes Do you feel safe in your relationship?: Yes Exam Narrative Exam Narrative: GEN: awake, alert, oriented 3. Pleasant, well groomed, interactive. HEAD: Normocephalic, atraumatic EYES: PERRL, EOMI NECK: Full ROM, no CHARLIE, no menigismus CHEST/RESP: Nontender, clear to auscultation bilateral, no wheeze/rhonchi/rales CARDIOVASCULAR: RRR, no murmur, rub drake. 2+ Rad pulse bilateral ABDOMEN: Soft, tender in the right lower quadrant, no mass. +Bowel sounds EXT: Full ROM, no edema, no rash Neuro: Grossly normal neurologic exam, conversant, interactive. Psych: Speech fluent, thoughts congruent, affect normal Course Vital Signs Vital signs: Vital Signs Temperature 36.3 C L 09/07/21 15:50 Pulse 80 09/07/21 15:50 Respiratory Rate 14 09/07/21 15:50 Blood Pressure 125/87 09/07/21 15:50 Pulse Oximetry 99 09/07/21 15:50 Temperature 36.6 C 09/07/21 17:48 Temperature Source Skin 09/07/21 17:48 Pulse 68 09/07/21 17:48 Respiratory Rate 18 09/07/21 17:48 Respiratory Effort Non-Labored 01/25/22 15:54 Blood Pressure 137/88 09/07/21 17:48 Blood Pressure Position Sitting 09/07/21 15:50 Pulse Oximetry 100 09/07/21 17:48 Oxygen Delivery Method Room Air 09/07/21 17:48 Oxygen Flow Rate 0 09/07/21 17:48 Pain Level 2 09/07/21 17:48 Lab/Test Results Lab/Test Results: Laboratory Tests Range/Units 09/07/21 09/07/21 09/07/21 15:25 16:00 16:00 WBC (4.4-10.8) 10^3/uL RBC (3.93-5.22) 10^6/uL Hgb (11.2-15.7) g/dL Hct (36.0-46.0) % MCV (80-95) fL MCH (27.0-33.0) pg MCHC (32.0-36.0) % RDW (11.7-14.6) % Plt Count (130-400) 10^3/uL MPV (8.0-11.0) fL Immature Gran % Neutrophils % Lymphocytes % Monocytes % Eosinophils % Basophils % Nucleated RBC % % Absolute Neutrophils (1.2-6.7) 10^3/uL Absolute Lymphocytes (1.2-3.4) 10^3/uL Absolute Monocytes (0.1-0.8) 10^3/uL Absolute Eosinophils (0.0-0.7) 10^3/uL Absolute Basophils (0.0-0.2) 10^3/uL VBG Lactate (0.6-1.4) mmol/L 0.8 Sodium (136-145) mmol/L 141 Potassium (3.5-5.1) mmol/L 3.5 Chloride (98-107) mmol/L 104 Carbon Dioxide (21.0-32.0) mmol/L 27.9 Anion Gap (3-11) mmol/L 9.1 BUN (7-18) mg/dL 18 Creatinine (0.55-1.02) mg/dL 0.9 Estimated GFR/1.73 m2 (mL/min/1.73m2) >= 60.00 Glucose (74-106) mg/dL 88 Calcium (8.5-10.1) mg/dL 9.8 Total Bilirubin (0.2-1.0) mg/dL 0.9 AST (15-37) U/L 18 ALT (14-59) U/L 34 Alkaline Phosphatase (46-116) U/L 68 C-Reactive Protein (0.0-0.3) mg/dL 0.15 Total Protein (6.4-8.2) g/dL 8.2 Albumin (3.4-5.0) g/dL 4.6 Urine Color (Yellow) Urine Clarity (Clear) Urine pH (5-8) Ur Specific [place] (1.005-1.025) Urine Protein (Negative) mg/dL Urine Ketones (Negative) mg/dL Urine Blood (Negative) Urine Nitrite (Negative) Urine Bilirubin (Negative) Urine Urobilinogen (Up TO 0.2) EU/dL Ur Leukocyte Esterase (Negative) Urine Glucose (Negative) mg/dL Range/Units 09/07/21 09/07/21 16:00 17:55 WBC (4.4-10.8) 10^3/uL 7.20 RBC (3.93-5.22) 10^6/uL 5.21 Hgb (11.2-15.7) g/dL 15.6 Hct (36.0-46.0) % 47.6 H MCV (80-95) fL 91.4 MCH (27.0-33.0) pg 29.9 MCHC (32.0-36.0) % 32.8 RDW (11.7-14.6) % 12.6 Plt Count (130-400) 10^3/uL 337 MPV (8.0-11.0) fL 9.8 Immature Gran % 0.4 Neutrophils % 50.2 Lymphocytes % 41.7 Monocytes % 6.1 Eosinophils % 0.8 Basophils % 0.8 Nucleated RBC % % 0 Absolute Neutrophils (1.2-6.7) 10^3/uL 3.61 Absolute Lymphocytes (1.2-3.4) 10^3/uL 3.00 Absolute Monocytes (0.1-0.8) 10^3/uL 0.44 Absolute Eosinophils (0.0-0.7) 10^3/uL 0.06 Absolute Basophils (0.0-0.2) 10^3/uL 0.06 VBG Lactate (0.6-1.4) mmol/L Sodium (136-145) mmol/L Potassium (3.5-5.1) mmol/L Chloride (98-107) mmol/L Carbon Dioxide (21.0-32.0) mmol/L Anion Gap (3-11) mmol/L BUN (7-18) mg/dL Creatinine (0.55-1.02) mg/dL Estimated GFR/1.73 m2 (mL/min/1.73m2) Glucose (74-106) mg/dL Calcium (8.5-10.1) mg/dL Total Bilirubin (0.2-1.0) mg/dL AST (15-37) U/L ALT (14-59) U/L Alkaline Phosphatase (46-116) U/L C-Reactive Protein (0.0-0.3) mg/dL Total Protein (6.4-8.2) g/dL Albumin (3.4-5.0) g/dL Urine Color (Yellow) Straw Urine Clarity (Clear) Clear Urine pH (5-8) 7.0 Ur Specific [place] (1.005-1.025) 1.015 Urine Protein (Negative) mg/dL Negative Urine Ketones (Negative) mg/dL Negative Urine Blood (Negative) Trace-lysed H Urine Nitrite (Negative) Negative Urine Bilirubin (Negative) Negative Urine Urobilinogen (Up TO 0.2) EU/dL 0.2 Ur Leukocyte Esterase (Negative) Negative Urine Glucose (Negative) mg/dL Negative PAWSS Have you Been Recently Intoxicated or Drunk Within the Last 30 days?: No Have you Ever Experienced Previous Episodes of Alcohol Withdrawal?: No Have you ever Experienced Withdrawal Seizures?: No Have you ever Experienced Delirium Tremens(DT)s?: No Have you ever undergone Alcohol Rehabilitation Treatment (i.e, inpt ot outpatient treatment programs)?: No Have you ever Experienced Blackouts?: No Have you ever Combined Alcohol with other Downers within the last 90 days?: No Have you ever Combined Alcohol with any other Substance of Abuse during the last 90 days?: No Positive Blood Alcohol level on Presentation? [PCS.BAL]: No Evidence of Increased Autonomic Activity (i.e. HR>120, tremor, sweating, agitation, nausea)?: No Result: 0
[2021-09-07 18:14] LABS: Bacteria Negative HPF (Negative); C & S Indicated? No; Crystals Negative HPF (Negative); Epithelial Cells Negative HPF (Negative); Mucus Negative (Negative); RBC 0-2 HPF (0-2); WBC Negative HPF (0-5)
--- NOTE | 2021-09-07 18:14 | HPE_ITS ---
Date of service: 09/07/21 Time of Service: 18:15 Assessment and Plan Assessment and plan (1) Hyperlipidemia: (2) Appendicitis: Status: Acute Assessment and plan: Continue antibiotics Supportive care Appendectomy in a.m. Informed consent is obtained for the procedural (explained in simple layman's te macrina that the pt and/or family could understand) explaining risks vs benefits and alternatives to the procedure and consequences if we do not do the procedure. Risks include but are not limited to: bleeding, infections, pneumonia, blood clots/DVT/PE, anesthesia (aspiration, damage to teeth/airway/WA/ CVA//prolonged mechanical ventilation/PTX/IV infections), damage to bowel, bladder, blood vessels, ureters. Leakage from anastomosis requiring colostomy/ Wound infections requiring further surgery. Loss of function of limb/ext. Scarring and disfigurement. Subsequent bowel obstructions from scar tissue. Chronic pain or numbness from the incision, or hernia. Possible open procedure if minimally invasive procedure is being attempted. Hernia. Poor cosmesis History of Present Illness Narrative: Mrs Hwang is a pleasant 60-year-old female who was sent here by her primary care physician for appendicitis. She had labs drawn on August 21 which showed a white count of 14,000. She was seen in the urgent care and had a CT scan ordered which showed most likely early appendicitis. She was sent home with 7 days of antibiotics which she took twice a day. It sounds like Augmentin possibly. Unfortunately we have no records from urgent care. The patient comes into the office complaining of having had chills last night and still having some pain. She does feel like the pain is better than it was when she went to urgent care. She finished her antibiotics on the . She denies any nausea or vomiting. Patient was seen by Dr. Coffman in the office earlier today. Please note above comments by Dr. Coffman. She was sent to the ER for CT scan. Abdom. CT does not show any large abscesses or phlegmon. Still does show acute appendicitis-although improved from her previous CT. 5 clean the patient signs and symptoms wax and wane between fever and chills/anorexia/pain. She was on antibiotic for 7 days and has completed course, but her symptoms but not improved and she still has a low-grade heada ches. Patient is going to require surgical intervention. We will keep her on antibiotics overnight and plan surgery in the morning. Her only surgery was tonsils as a child. She is allergic to sulfa. She has never had any abdominal surgery before. She has no history of heart disease/diabetes/asthma or COPD. She is a non-smoker [facility] All Active Problems (Updated 09/07/21 @ 18:10 by Randall Mcdaniel MD) Appendicitis (Acute) Abdominal pain (Acute) Medical History Head ache History of shingles Hyperlipidemia Neck pain No significant past medical history Urge incontinence Surgical History No significant past surgical history Social History Smoking/Tobacco Use Status: Former Tobacco Use Smoking risk assessment performed?: Yes Alcohol Intake: current Alcohol Intake frequency: a few times a week Drug use: Never Substance use type: does not use Current gender identity: female Do you feel safe at home: Yes Do you feel safe in your relationship?: Yes Meds Allergies and Home Medications Allergies Allergy/AdvReac Type Severity Reaction Status Date / Time sulfamethoxazole Allergy Intermediate unknown Verified 09/07/21 15:54 [From Bactrim] trimethoprim [From Bactrim] Allergy Intermediate unknown Verified 09/07/21 15:54 Home Medications Medication Instructions Recorded Confirmed Type calcium carbonate-vitamin D3 1 ea PO DAILY 11/24/15 09/07/21 History [Calcium 500 With D] multivitamin [Daily Multi-Vitamin] 1 ea PO DAILY 11/24/15 09/07/21 History Advil 100 mg PO Q6H PRN 11/22/19 09/07/21 History Exam [facility] Ears: hearing grossly normal bilaterally Teeth and gingiva: dentition normal Other: None tenderness mucous membranes are moist Resp Effort & Inspection: normal respiratory effort and able to speak in complete sentences Auscultation: clear to auscultation bilaterally Cardio Rate: regular rate Rhythm: regular rhythm GI Other: Hypoactive bowel sounds. Right lower quadrant pain with localized rebound and guarding. No umbilical hernia Extrem General: no clubbing, cyanosis or edema Results Labs Result diagrams: 09/07/21 16:00 09/07/21 16:00 Labs: Laboratory Results - last 24 hr 0109/07/21 09/07/21 15:25 16:00 16:00 WBC RBC Hgb Hct MCV MCH MCHC RDW Plt Count MPV Immature Gran % Neutrophils % Lymphocytes % Monocytes % Eosinophils % Basophils % Nucleated RBC % Absolute Neutrophils Absolute Lymphocytes Absolute Monocytes Absolute Eosinophils Absolute Basophils VBG Lactate 0.8 Sodium 141 Potassium 3.5 Chloride 104 Carbon Dioxide 27.9 Anion Gap 9.1 BUN 18 Creatinine 0.9 Estimated GFR/1.73 m2 >= 60.00 Glucose 88 Calcium 9.8 Total Bilirubin 0.9 AST 18 ALT 34 Alkaline Phosphatase 68 C-Reactive Protein 0.15 Total Protein 8.2 Albumin 4.6 Urine Color Urine Clarity Urine pH Ur Specific [place] Urine Protein Urine Ketones Urine Blood Urine Nitrite Urine Bilirubin Urine Urobilinogen Ur Leukocyte Esterase Urine RBC Urine WBC Ur Epithelial Cells Urine Crystals Urine Bacteria Urine Mucus Ur Culture Indicated? Urine Glucose 09/07/21 09/07/21 16:00 17:55 WBC 7.20 RBC 5.21 Hgb 15.6 Hct 47.6 H MCV 91.4 MCH 29.9 MCHC 32.8 RDW 12.6 Plt Count 337 MPV 9.8 Immature Gran % 0.4 Neutrophils % 50.2 Lymphocytes % 41.7 Monocytes % 6.1 Eosinophils % 0.8 Basophils % 0.8 Nucleated RBC % 0 Absolute Neutrophils 3.61 Absolute Lymphocytes 3.00 Absolute Monocytes 0.44 Absolute Eosinophils 0.06 Absolute Basophils 0.06 VBG Lactate Sodium Potassium Chloride Carbon Dioxide Anion Gap BUN Creatinine Estimated GFR/1.73 m2 Glucose Calcium Total Bilirubin AST ALT Alkaline Phosphatase C-Reactive Protein Total Protein Albumin Urine Color Straw Urine Clarity Clear Urine pH 7.0 Ur Specific [place] 1.015 Urine Protein Negative Urine Ketones Negative Urine Blood Trace-lysed H Urine Nitrite Negative Urine Bilirubin Negative Urine Urobilinogen 0.2 Ur Leukocyte Esterase Negative Urine RBC 0-2 Urine WBC Negative Ur Epithelial Cells Negative Urine Crystals Negative Urine Bacteria Negative Urine Mucus Negative Ur Culture Indicated? No Urine Glucose Negative Last Vital Signs Temp 36.6 C 09/07/21 17:48 Pulse 68 09/07/21 17:48 Resp 18 09/07/21 17:48 BP 137/88 09/07/21 17:48 Pulse Ox 100 09/07/21 17:48 PAWSS Have you Been Recently Intoxicated or Drunk Within the Last 30 days?: No Have you Ever Experienced Previous Episodes of Alcohol Withdrawal?: No Have you ever Experienced Withdrawal Seizures?: No Have you ever Experienced Delirium Tremens(DT)s?: No Have you ever undergone Alcohol Rehabilitation Treatment (i.e, inpt ot outpatient treatment programs)?: No Have you ever Experienced Blackouts?: No Have you ever Combined Alcohol with other Downers within the last 90 days?: No Have you ever Combined Alcohol with any other Substance of Abuse during the last 90 days?: No Positive Blood Alcohol level on Presentation? [PCS.BAL]: No Evidence of Increased Autonomic Activity (i.e. HR>120, tremor, sweating, agitation, nausea)?: No Result: 0
[2021-09-07 18:16] LABS: Source Nasal/Nares
[2021-09-07] MEDS: PIPERACILLIN/TAZO 3.375 GM in Normal Saline 50 ML IVPB ×2 (18:39→23:45)
[2021-09-07 18:54] LABS: COVID-19 PCR Negative (Negative)
[2021-09-07 19:25] VITALS: BP 118/81; PULSE 71; RESP 16; TEMP 37.2; O2SAT 98
[2021-09-07] MEDS: Lactated Ringers 1,000 ML 125 ML IV (21:48)
[2021-09-07] MEDS: ACETAMINOPHEN 1,000 MG/100 ML BTL 400 MG IVPB (23:27)
[2021-09-08] VITALS (9 sets, daily range): BP systolic 96–115; BP diastolic 62–77; PULSE 52–61; RESP 13–22; TEMP 36.1–36.8; O2SAT 95–97; BMI 25.4
[2021-09-08] MEDS: ACETAMINOPHEN 1,000 MG/100 ML BTL 400 MG IVPB ×2 (05:18→13:42)
[2021-09-08] MEDS: PIPERACILLIN/TAZO 3.375 GM in Normal Saline 50 ML IVPB ×3 (05:36→19:50)
[2021-09-08 06:41] LABS: Abs Immature Grans 0.01 10^3/uL (0.0-0.06); Absolute Basophil Count 0.05 10^3/uL (0.0-0.2); Absolute Eosinophil Count 0.09 10^3/uL (0.0-0.7); Absolute Lymphocyte Count 2.13 10^3/uL (1.2-3.4); Absolute Monocyte Count 0.41 10^3/uL (0.1-0.8); Absolute Neutrophil Count 1.78 10^3/uL (1.2-6.7); Basophils % 1.1; HCT 42.1 % (36.0-46.0); HGB 13.9 g/dL (11.2-15.7); Immature Grans % 0.2; Lymphocytes % 47.7; MCH 30.2 pg (27.0-33.0); MCV 91.5 fL (80-95); Monocytes % 9.2; Neutrophils % 39.8; Nucleated RBC 0 %; Platelet Count 271 10^3/uL (130-400); RDW 12.7 % (11.7-14.6); RDW-SD 42.5 fL; WBC 4.47 10^3/uL (4.4-10.8)
[2021-09-08] MEDS: Lactated Ringers 1,000 ML 125 ML IV (09:04)
--- NOTE | 2021-09-08 10:41 | PDOC.CMIN ---
- If Service Date Differs Date of service: 09/08/21 Time of Service: 10:41 Care Management Initial Assess REASON FOR HOSPITALIZATION:: Appendicitis PAST MEDICAL HISTORY/PAST SURGICAL HISTORY:: All Active Problems (Updated 09/07/21 @ 18:10 by Randall Mcdaniel MD). Appendicitis (Acute). Abdominal pain (Acute). Medical History . Head ache. History of shingles. Hyperlipidemia. Neck pain. No significant past medical history. Urge incontinence. Surgical History . No significant past surgical history PREVIOUS FUNCTIONAL STATUS/SOCIAL/FAMILY SUPPORTS:: Zoe lives in a single family home in [place], [place] with her Robert. They have been about 20 years and do not have any children. Zoe shared that her mother who lives in [place] is a strong source of support for her as is her . Zoe recently started a new job at [employer] in [place]. Prior to that she worked for almost 20 years at [employer] in [place]. Zoe is independent at baseline. CURRENT FUNCTIONAL STATUS:: Zoe was sitting up in bed when CM met with her. She had returned from surgery a little earlier but was awake and agreeable to conversation. She indicated that she was feeling OK and that the incisional pain was tolerable. Clinically she appears to be doing well. Her vital signs are stable and she has not required any pain medication. Zoe talked a bit about the fact that she has just started a new job and had to let her employer know she would need to be out of work. She reported that her [employer] supervisor was very understanding and just asked to be notified when she was able to return. ADVANCE DIRECTIVES:: none on file Has patient been provided with info about the portal/API?: Yes Did the patient sign up for the portal?: Yes (previously) CODE STATUS:: Full Code INSURANCE COVERAGE / FINANCIAL ISSUES:: [employer] CURRENT HOME/COMMUNITY SERVICES/EQUIPMENT:: none PRIMARY CARE PHYSICIAN:: Usha Woodward POTENTIAL DISCHARGE NEEDS:: follow up with surgeon and plan of care PATIENT/FAMILY EDUCATION NEEDS:: Review of discharge instructions, activity, follow up plan, and discuss [employer] Me [employer] TRANSPORTATION:: via private vehicle with PLAN:: Zoe will be discharged home with no new services. She will follow up with her community providers and plan of care and transport with family.
--- NOTE | 2021-09-08 11:15 | W.ANESPRE ---
General Info Date of Service Date Performed: 09/08/21 Height: 5 ft 6 in Weight: 71.668 kg Body Mass Index (BMI): 25.4 Surgical Procedure: Operation Date: 09/08/21 12:40 Proposed Procedures Side Surgeon p Appendectomy Laparoscopic Danya Coffman MD Meds Allergies and Home Medications Allergies Allergy/AdvReac Type Severity Reaction Status Date / Time sulfamethoxazole Allergy Intermediate unknown Verified 09/07/21 15:54 [From Bactrim] trimethoprim [From Bactrim] Allergy Intermediate unknown Verified 09/07/21 15:54 Home Medication Medication Instructions Recorded calcium carbonate-vitamin D3 1 ea PO DAILY 11/24/15 [Calcium 500 With D] multivitamin [Daily Multi-Vitamin] 1 ea PO DAILY 11/24/15 Advil 100 mg PO Q6H PRN 11/22/19 Current Visit Medications: Current Medications Generic Name Dose Route Start Last Admin Trade Name Freq PRN Reason Stop Dose Admin Sodium Chloride 1,000 mls @ 125 mls/hr 09/07/21 16:00 09/07/21 21:52 Saline 1000ml Bag IV 0 mls/hr INFUSION KYLE Infusion Sodium Chloride 500 mls @ 0 mls/hr 09/07/21 18:11 Saline 500ml Bag IV PRN PRN As Directed Ringer's Solution 1,000 mls @ 125 mls/hr 09/07/21 18:15 09/08/21 09:04 IV 125 mls/hr INFUSION KYLE Administration Acetaminophen 1,000 mg in 100 mls @ 400 mls/hr 09/07/21 18:15 09/08/21 05:37 Ofirmev IVPB Infused Q6H KYLE Infusion Piperacillin Sod/Tazobactam 50 mls @ 100 mls/hr 09/07/21 18:15 09/08/21 05:36 Sod 3.375 gm/ Sodium Chloride IVPB 100 mls/hr Q6H KYLE Administration Protocol IV Miscellaneous Supplies 1 each 09/07/21 18:15 Iv Access IV DIRECTED KYLE Morphine Sulfate 2 mg 09/07/21 18:11 Morphine 2 Mg/Ml Syr IVP Q1H PRN PRN Ondansetron HCl 4 mg 09/07/21 18:11 Ondansetron 4 Mg/2 Ml Vial IVP Q4H PRN PRN Sodium Chloride 0 ml 09/07/21 15:46 09/07/21 17:35 Normal Saline Flush 10 Ml Syr IVP 10 ml PRN PRN Administration PFSH Active Problems Active Problems: Problem Status Onset Code Appendicitis K37 Abdominal pain R10.9 Medical History Medical History Head ache History of shingles Hyperlipidemia Neck pain No significant past medical history Urge incontinence Surgical History Surgical History No significant past surgical history Tobacco Smoking/Tobacco Use Status: Former Tobacco Use Alcohol Alcohol Intake: current Alcohol intake frequency: a few times a week Substance Use Substance use: Never Substance use type: does not use Vital Signs and Lab Results Vital Signs Most Recent Vital Signs in EMR: Most Recent Vital Signs Temp Pulse Resp BP Pulse Ox 36.4 C L 61 18 101/67 97 09/08/21 07:40 09/08/21 07:40 09/08/21 07:40 09/08/21 07:40 09/08/21 07:40 Lab Results Result Diagrams: 09/08/21 06:09 09/07/21 16:00 Blood Type / Crossmatch: No Data to Display Complete Blood Count: White Blood Count 4.47 10^3/uL (4.4-10.8) 09/08/21 06:09 09/08/21 Red Blood Count 4.60 10^6/uL (3.93-5.22) 09/08/21 06:09 09/08/21 Hemoglobin 13.9 g/dL (11.2-15.7) 09/08/21 06:09 09/08/21 Hematocrit 42.1 % (36.0-46.0) 09/08/21 06:09 09/08/21 Platelet Count 271 10^3/uL (130-400) 09/08/21 06:09 09/08/21 Venous Blood Lactate 0.8 mmol/L (0.6-1.4) 09/07/21 16:00 09/07/21 Complete Metabolic Panel: Sodium Level 141 mmol/L (136-145) 09/07/21 16:00 09/07/21 Potassium Level 3.5 mmol/L (3.5-5.1) 09/07/21 16:00 09/07/21 Chloride Level 104 mmol/L (98-107) 09/07/21 16:00 09/07/21 Carbon Dioxide Level 27.9 mmol/L (21.0-32.0) 09/07/21 16:00 09/07/21 Blood Urea Nitrogen 18 mg/dL (7-18) 09/07/21 16:00 09/07/21 Creatinine 0.9 mg/dL (0.55-1.02) 09/07/21 16:00 09/07/21 Estimated GFR/1.73 m2 >= 60.00 (mL/min/1.73m2) 09/07/21 16:00 09/07/21 Calcium Level 9.8 mg/dL (8.5-10.1) 09/07/21 16:00 09/07/21 Albumin 4.6 g/dL (3.4-5.0) 09/07/21 16:00 09/07/21 Glucose Level 88 mg/dL (74-106) 09/07/21 16:00 09/07/21 C-Reactive Protein 0.15 mg/dL (0.0-0.3) 09/07/21 15:25 09/07/21 Liver Function Panel: Alanine Aminotransferase (ALT/SGPT) 34 U/L (14-59) 09/07/21 16:00 09/07/21 Aspartate Amino Transf (AST/SGOT) 18 U/L (15-37) 09/07/21 16:00 09/07/21 Coagulation Panel: No Data to Display Cardiac Panel: No Data to Display Arterial Blood Gas: No Data to Display Venous Blood Gas: No Data to Display Pancreas Panel: No Data to Display Thyroid Panel: No Data to Display Infectious Disease: Coronavirus (COVID-19)(PCR) Negative (Negative) 09/07/21 18:10 09/07/21 Coronavirus 2019 Source Nasal/Nares 09/07/21 18:10 09/07/21 Blood Cultures: No Data to Display Toxicology Panel: No Data to Display Anesthesia Assessment and Plan Anesthesia History Personal History: No History of Anesthesia Complications Family History: No Family History of Anesthesia Complications Exercise Tolerance Exercise Tolerance: Metabolic Equivalents>4 Cardiac & Pulmonary Exam Cardiac Exam: Normal S1/S2 Heart Sounds Pulmonary Exam: Clear Bilateral Breath Sounds Implantable Cardiac Device Does patient have a Pacemaker or an ICD?: No Airway Exam Known Difficult Airway: No Mallampati Class: 2 Mouth Opening: Narrow (< 3cm) Thyromental Distance: Less than 3 cm Neck Range of Motion: Full ROM Neck Circumference: Thick Teeth Condition: Normal Dentition ASA Classification ASA Score: ASA 2 Emergency Case?: No NPO Status NPO Status: NPO Clears >2 hours, Solids >8 hours Anesthesia Plan Resuscitation Status: Full Code Anesthesia Technique: General Anesthesia Airway Planned: Endotracheal Tube Monitors Used: Standard Monitors Preoperative Comments:: 60 yo female with appendicitis. Sig PMHx: former smoker, occ EtOH, denies major. Currently inpt, received last dose pip/marlyn @ 0536, acetaminophen 1000 mg @ 0518. currently 2-10/21 for pain. denies anes complications for herself, however states that her dad had awareness with a gallbladder removal.
--- NOTE | 2021-09-08 12:45 | APP_PTH ---
PATIENT: Zoe Hwang LOC: U#:[id number] AGE/SX: 60/F ROOM: [facility] RE09/07/[address]: Nica Mackey : 1960 BED: A DIS: 09/09/2021 SPEC #: [id number] RECD: 09/08/21 17:02 STATUS: CURLY REQ #: [id number] JOSESITO: 09/08/21 12:[address]: Nica Mackey DEPT: Surgical Specimen RECD BY: Mariangel Cervantes ENTERED: 09/08/21 17:13 SP TYPE: Appendix OTHR DR: Usha Woodward Tissues: 1 - APPENDIX NOT INCIDENTAL Procedures: GROSS AND MICRO LEVEL 3 Comments: [id number]
[2021-09-08] MEDS: Bupivacaine 0.25% Pres-Free 30 ML VIAL (12:55)
[2021-09-08] MEDS: Bupivacaine LIPOSOME/PF 133 MG/10 ML VIAL IJ (12:55)
--- NOTE | 2021-09-08 13:06 | ROE_ITS ---
Date of service: 09/08/21 Time of Service: 13:06 Operative Note Operative Note DATE OF PROCEDURE: 09/08/21 PRE-OP DIAGNOSIS: Acute appendicitis POST-OP DIAGNOSIS: same PROCEDURE: Laparoscopic Appendectomy SURGEON: Danya Coffman GARNETT MACHINE OPERATOR: May Gabriel ANESTHESIA TYPE: General LMA/ETT (Galo Singer CRNA) Refer to Anesthesia Record ESTIMATED BLOOD LOSS: 25 PATHOLOGY: other (Appendix) COMPLICATIONS: None Patient was transported to: PACU Patient's condition: stable Implants: Indications: Informed consent is obtained for the procedural (explained in simple layman's terms that the pt and/or family could understand) explaining risks vs benefits and alternatives to the procedure and consequences if we do not do the procedure. Risks include but are not limited to: bleeding, infections, pneumonia, blood clots/DVT/PE, anesthesia (aspiration, damage to teeth/airway/NE /CVA//prolonged mechanical ventilation/PTX/IV infections), damage to bowel, bladder, blood vessels, ureters. Leakage from anastomosis requiring colostomy/ Wound infections requiring further surgery. Loss of function of limb/ext. Scarring and disfigurement. Subsequent bowel obstructions from scar tissue. Chronic pain or numbness from the incision, or hernia. Possible open procedure if minimally invasive procedure is being attempted. Hernia. Poor cosmesis Findings: Inflammed appendix Procedure Description: After informed consent was obtained the patient was taken to the operating room placed in the supine position, SCDs were applied as well as monitors. A timeout was done. The patient was then placed under general anesthesia and intubated without any difficulty. Next a Corral catheter was placed in a standard surgical fashion. At this point the abdomen was prepped and draped in a sterile surgical fashion with chlorhexidine. A second timeout was done and the patient's name, date of , operation to be performed, DVT prophylaxis, antibiotic given, and fire risk was assessed. Exparel was mixed 50-50 with 0.25% Bupivocaine. The mixture was injected into the dermis just below the umbilicus. A small 5 mm incision was made with an 11 blade. The skin was grasped with penetrating towel clamps on either side of the incision and then using a Visiport a 5 mm port was placed under direct visualization into the abdomen. The abdomen was insufflated. Local anesthetic was then injected just above the pubic symphysis just to the right of midline. A small 5 mm incision was made with an 11 blade and another 5 mm port was placed under direct visualization into the abdomen. The local anesthetic was then injected in the left lower quadrant area and a 12 mm incision was made with an 11 blade. A 12 mm port was then placed under direct visualization. The patient's bed was then turned to the left and head down allowing me to sweep of the small bowel out of the right lower quadrant. The cecum was gently grasped and the appendix was identified. The appendix looked inflammed and thickened at the tip. No purulent fluid was noted. The appendix was grasped at the neck and pulled up slightly allowing me to visualize the junction with the cecum. Using the laparoscopic LigaSure the mesoappendix was slowly transected. Using a laparoscopic straight stapler the appendix was then transected at the junction with the cecum. The appendix was placed into an Endo Catch bag and removed through the 12 mm port site. The port was placed back into the abdomen and the staple line was identified. There was a small amount of bleeding noted from the staple line. A clip was applied to the area. No more bleeding was noted. The transected mesentery was identified and no bleeding was noted. The 2 5 mm ports were then removed under direct visualization and no bleeding was noted from the fascia. The insufflation was stopped and the 12 mm port was removed. The 12 mm port site fascia was closed with a 0 Vicryl [id number] suture. The skin was then closed with 4-0 Vicryl. The skin was cleaned and dried and skin affix was applied. The patient was woken up, extubated and taken back to recovery room in stable condition. There were no immediate complications. Sponge, instrument and needle counts were correct at the end of the case x2.
--- NOTE | 2021-09-08 14:27 | W.ANESPOSTOP ---
Postoperative Evaluation Date, Time and Location Date Performed: 09/08/21 Time Performed: 14:27 Patient Location: PACU Vital Signs Most Recent Imported Vital Signs: Most Recent Vital Signs Temp Pulse Resp BP Pulse Ox 36.8 C 53 L 16 106/67 95 09/08/21 14:17 09/08/21 14:17 09/08/21 14:17 09/08/21 14:17 09/08/21 14:17 Pain Score Most Recent Pain Score: Most Recent Pain Score Pain Level 5 09/08/21 14:17 Assessment Mental Status: Awake (Alert & Oriented to Patient Baseline) Airway and Respiratory Function: Patent airway with normal (patient baseline) respiratory exam Cardiovascular Function: Hemodynamically Stable Hydration Status: Adequately Hydrated Nausea & Vomiting: No Nausea or Vomiting Pain: Pain is tolerable per patient Peripheral Nerve Block: Patient did not receive a nerve block
[2021-09-08] MEDS: Lactated Ringers 1,000 ML 75 ML IV (16:04)
--- NOTE | 2021-09-08 16:23 | CHAPLAIN ---
Zoe told me about her surgery and said she may be discharged later today. She is from the [facility], but lives [place] now as that's where her is from. She seemed to be comfortable being here and just waiting to hear if she'll be staying overnight or not.
[2021-09-08] MEDS: Acetaminophen 500 MG TAB 1000 MG PO (19:50)
[2021-09-09] MEDS: PIPERACILLIN/TAZO 3.375 GM in Normal Saline 50 ML IVPB ×2 (02:13→08:26)
[2021-09-09] MEDS: Normal Saline Flush 10 ML SYR IVP ×2 (03:18→08:26)
[2021-09-09 08:08] VITALS: BP 116/70; PULSE 57; RESP 16; TEMP 36.7; O2SAT 98
--- NOTE | 2021-09-09 08:08 | W.PM.PROGNOT ---
Documented by User: GABRIELLE Tate 09/09/21 08:13 Date of Service Date of service: 09/09/21 Time of Service: 08:08 Assessment and Plan Assessment and plan (1) Hyperlipidemia: (2) Appendicitis: Status: Acute Assessment and plan: POD #1 s/p laparoscopic Appendectomy Tolerating regular diet. Ambulating within the room independently. Urinating without difficulty. (+) bowel sounds, no flatus or BM Pain well controlled. No fevers over night. D/C home later today Subjective Subjective Interval history since last seen: Patient reports 2-310PL. She reports tolerating dinner last night without any nausea or vomiting. She states she has been ambulating independently within her room and is eager to return home today. Exam Const General: cooperative, healthy appearing and comfortable Orientation: alert and oriented x3 Resp Effort & Inspection: normal respiratory effort, no audible wheezes and no cough GI Inspection: incision (mild ecchymosis around incision sites) Palpation: soft, no guarding and tender (around incision sites. skin a fix in place. no erythema, swelling or indura) Auscultation: normal bowel sounds Objective Last Vital Signs Temp 36.5 C 09/08/21 23:57 Pulse 58 L 09/08/21 23:57 Resp 17 09/08/21 23:57 BP 96/62 L 09/08/21 23:57 Pulse Ox 96 09/08/21 23:57 PAWSS Have you Been Recently Intoxicated or Drunk Within the Last 30 days?: No Have you Ever Experienced Previous Episodes of Alcohol Withdrawal?: No Have you ever Experienced Withdrawal Seizures?: No Have you ever Experienced Delirium Tremens(DT)s?: No Have you ever undergone Alcohol Rehabilitation Treatment (i.e, inpt ot outpatient treatment programs)?: No Have you ever Experienced Blackouts?: No Have you ever Combined Alcohol with other Downers within the last 90 days?: No Have you ever Combined Alcohol with any other Substance of Abuse during the last 90 days?: No Positive Blood Alcohol level on Presentation? [PCS.BAL]: No Evidence of Increased Autonomic Activity (i.e. HR>120, tremor, sweating, agitation, nausea)?: No Result: 0 Documented by User: Nica Mackey DO 09/09/21 09:47 Assessment and Plan Assessment and plan (1) Appendicitis: Status: Acute Assessment and plan: -Patient seen and examined. Agree with above. -Per Dr. Coffman she does not require any further antibiotics -She did have diarrhea last p.m. I did write a prescription for probiotics. Yogurt daily. If she is having more than 3 bowel movements a day or they continue to be liquid she should call the office and we will test for C. difficile.
--- NOTE | 2021-09-09 08:13 | DSE_ITS ---
Documented by User: GABRIELLE Tate 09/09/21 08:19 Date of service: 09/09/21 Time of Service: 08:13 DS: Diagnosis Discharge Diagnosis (1) Hyperlipidemia: (2) Appendicitis: Status: Acute Discharge Plan Disposition Patient Disposition: HOME Condition: Stable Discharge Details Reason For Visit: Appendicitis Admit Date/Time: 09/07/21 18:11 Admit Provider: Nica Mackey Attending Provider: Nica Mackey Primary Care Provider: Usha Woodward Hospital Course Hospital Course: 60 y/o female whom was originally seen by urgent care on Aug.21, had a CT scan which showed signs of early appendicitis. She was sent home with a 7 day course of antibiotics and follwed up in the office with Dr. Coffman on 09/07. She sent to the ER after being seen by Dr. Coffman in the surgical clinic for CT scan. CT scan showed acute appendicitis that was slightly improved. She was admitted to the surgical service, to proceed with surgical intervention. Patient underwent laparoscopic appendectomy with Dr. Coffman. Patient was kept over night for pain control and observation. She tolerated regular diet well. Pain was well controlled and she did not have any fevers overnight. She will be d/c home and follow up with Surgical Services in 2 weeks. Home Meds and New Rx's Prescriptions: New Bio-K plus 50 billion cell capsule,delayed release(DR/EC) 1 cap PO DAILY Qty: 30 RF: 0 tramadol [Ultram] 50 mg tablet 50 mg PO Q6H PRN (Reason: pain (scale score 7-10)) Qty: 7 RF: 0 Continued multivitamin [Daily Multi-Vitamin] 1 EACH tablet 1 ea PO DAILY RF: 0 calcium carbonate-vitamin D3 [Calcium 500 With D] 1 EACH tablet 1 ea PO DAILY RF: 0 Advil 100 mg Tablet 100 mg PO Q6H PRNRF: 0 Discharge Instructions Instructions: Laparoscopic Appendectomy (DC) Additional Instructions: Keep an ice bag on the incision. 20 minutes on and 20 minutes off. Ice keeps the swelling down and swelling causes pain. Make sure you wrap the ice pack in a towel and don't apply directly to the skin. -No driving for 72 hours or of you are taking narcotic pain medications. -Do Not remove purple skin glue that cover the incision. It will wear off. -Follow-up with Dr. Mackey in 1 week. -There are no dietary restrictions -no straining to move bowels -pain meds are very constipating: if you do not move your bowels daily take a dose of OTC milk of magnesia -It is ok to shower. No bathe, soaking, swimming or hot tubs -Keep wound clean and dry. Wash incision with soap and water daily. Pat dry, don't rub. -You may find that your appetite is smaller. Eat 3-6 small meals throughout the day. It is important to drink lots of water after surgery, 6-10 glasses a day. -We do want you up walking, at least 5-6 times per day. This is very important to prevent pneumonia and blood clots. You can climb stairs, take them slowly. -No lifting over 5 pounds. This is very important to avoid developing a hernia in your incision. -You may find that you are very tired after surgery- this is normal. -please do not smoke for a minimum of 72 hours after surgery. -Pain Plan ? MEDICATIONS: Alternate Tylenol 1000mg by mouth every 8 hours and Ibuprofen 600mg every 6 hours. Make sure you take ibuprofen with food and not on an empty stomach. Take the Tylenol and ibuprofen continuously for the first 72hrs- not just when you have pain. Use the tramadol for breakthrough pain. Use ICE! Twenty minutes on, and then off, continuously for the first 72hours. If you are taking narcotic pain medication, follow the instructions on the label and do not drive. Pain medications can make you very constipated. Make sure you are moving your bowels daily. If not, take Miralax, milk of magnesia or magnesium citrate. -off of work until f/u appt. -Follow-up with Dr. Coffman in the clinic on 09/21 at 10 AM Stand Alone Forms: Nursing Discharge Form Referrals: Danya Coffman MD [ [facility] STAFF PHYSICIAN] - 09/21/21 10:00 am Activity:: See above Equipment/Supplies:: No Equipment Needed Diet:: As Tolerated Discharge Orders Discharge Orders: Discharge Order (Routine); Ordered 09/09/21 Ordered By: Nica Mackey DS: Summary Time Spent with Patient providing and/or coordinating discharge services: Less than 30 minutes Status at Discharge Functional status at discharge: independent ambulation Overall status at discharge: patient is back to baseline Mental Status: mental status grossly normal Speech and Movement: speech and movement normal Mood: congruent mood Affect: normal affect Exam Const General: cooperative, healthy appearing and comfortable Orientation: alert and oriented x3 Resp Effort & Inspection: normal respiratory effort, no audible wheezes and no cough GI Inspection: normal to inspection Palpation: soft, no guarding and tender (around incision sites) Auscultation: normal bowel sounds Psych Mental Status: mental status grossly normal Speech and Movement: speech and movement normal Mood: congruent mood Affect: normal affect DS: Data Vitals/I&O Vitals and I&O: Vital Signs Temperature 36.7 C 09/09/21 08:08 Temperature Source Tympanic 09/09/21 08:08 Pulse 57 L 09/09/21 08:08 Pulse Rhythm Regular 09/08/21 23:47 Respiratory Rate 16 09/09/21 08:08 Respiratory Effort Non-Labored 09/08/21 23:47 Respiratory Depth Normal 09/08/21 23:47 Respiratory Pattern Normal 09/08/21 23:47 Blood Pressure 116/70 09/09/21 08:08 Blood Pressure Position Sitting 09/07/21 15:50 Pulse Oximetry 98 09/09/21 08:08 Oxygen Delivery Method Room Air 09/09/21 08:08 Oxygen Flow Rate 0 09/09/21 08:08 Pain Level 3 09/09/21 08:08 Comment 09/08/21 23:57 Intake & Output 09/08/21 09/09/21 09/09/21 18:59 06:59 18:59 Intake Total 1273.750 / 1323.750 50 / 1323.750 Output Total 1150 / 1550 400 / 1550 Balance 123.75 / -226.250 -350 / -226.250 Weight 71.668 kg Intake: IV 1273.750 / 1323.750 50 / 1323.750 Output: Urine 1150 / 1550 400 / 1550 Other: Urine Color Pale Pale Yellow Urine Appearance Clear Clear Urine Odor Normal Normal Comment 100 from before going to surgery and then 100 after surgery. Emesis Description None Voiding Methods Toilet Bedside Commode [facility] All Active Problems (Updated 09/07/21 @ 18:10 by Randall Mcdaniel MD) Appendicitis (Acute) Abdominal pain (Acute) Medical History Head ache History of shingles Hyperlipidemia Neck pain No significant past medical history Urge incontinence Surgical History No significant past surgical history Social History Smoking/Tobacco Use Status: Former Tobacco Use Smoking risk assessment performed?: Yes Alcohol Intake: current Alcohol Intake frequency: a few times a week Drug use: Never Substance use type: does not use Current gender identity: female Do you feel safe at home: Yes Do you feel safe in your relationship?: Yes Documented by User: Nica Mackey DO 09/09/21 09:46 Discharge Plan Disposition Patient Disposition: HOME Condition: Stable Discharge Details Reason For Visit: Appendicitis Admit Date/Time: 09/07/21 18:11 Admit Provider: Nica Mackey Attending Provider: Nica Mackey [facility]: 60 y/o female whom was originally seen by urgent care on Aug.21, had a CT scan which showed signs of early appendicitis. She was sent home with a 7 day course of antibiotics and follwed up in the office with Dr. Coffman on 09/07. She sent to the ER after being seen by Dr. Coffman in the surgical clinic for CT scan. CT scan showed acute appendicitis that was slightly improved. She was admitted to the surgical service, to proceed with surgical intervention. Patient underwent laparoscopic appendectomy with Dr. Coffman. Patient was kept over night for pain control and observation. She tolerated regular diet well. Pain was well controlled and she did not have any fevers overnight. She will be d/c home and follow up with Surgical Services in 2 weeks. Home Meds and New Rx's Prescriptions: New Bio-K plus 50 billion cell capsule,delayed release(DR/EC) 1 cap PO DAILY Qty: 30 RF: 0 tramadol [Ultram] 50 mg tablet 50 mg PO Q6H PRN (Reason: pain (scale score 7-10)) Qty: 7 RF: 0 Continued multivitamin [Daily Multi-Vitamin] 1 EACH tablet 1 ea PO DAILY RF: 0 calcium carbonate-vitamin D3 [Calcium 500 With D] 1 EACH tablet 1 ea PO DAILY RF: 0 Advil 100 mg Tablet 100 mg PO Q6H PRNRF: 0 Discharge Instructions Instructions: Laparoscopic Appendectomy (DC) Additional Instructions: Keep an ice bag on the incision. 20 minutes on and 20 minutes off. Ice keeps the swelling down and swelling causes pain. Make sure you wrap the ice pack in a towel and don't apply directly to the skin. -No driving for 72 hours or of you are taking narcotic pain medications. -Do Not remove purple skin glue that cover the incision. It will wear off. -Follow-up with Dr. Mackey in 1 week. -There are no dietary restrictions -no straining to move bowels -pain meds are very constipating: if you do not move your bowels daily take a dose of OTC milk of magnesia -It is ok to shower. No bathe, soaking, swimming or hot tubs -Keep wound clean and dry. Wash incision with soap and water daily. Pat dry, don't rub. -You may find that your appetite is smaller. Eat 3-6 small meals throughout the day. It is important to drink lots of water after surgery, 6-10 glasses a day. -We do want you up walking, at least 5-6 times per day. This is very important to prevent pneumonia and blood clots. You can climb stairs, take them slowly. -No lifting over 5 pounds. This is very important to avoid developing a hernia in your incision. -You may find that you are very tired after surgery- this is normal. -please do not smoke for a minimum of 72 hours after surgery. -Pain Plan ? MEDICATIONS: Alternate Tylenol 1000mg by mouth every 8 hours and Ibuprofen 600mg every 6 hours. Make sure you take ibuprofen with food and not on an empty stomach. Take the Tylenol and ibuprofen continuously for the first 72hrs- not just when you have pain. Use the tramadol for breakthrough pain. Use ICE! Twenty minutes on, and then off, continuously for the first 72hours. If you are taking narcotic pain medication, follow the instructions on the label and do not drive. Pain medications can make you very constipated. Make sure you are moving your bowels daily. If not, take Miralax, milk of magnesia or magnesium citrate. -off of work until f/u appt. -Follow-up with Dr. Coffman in the clinic on 09/21 at 10 AM Stand Alone Forms: Nursing Discharge Form Referrals: Danya Coffman MD [ [facility] STAFF PHYSICIAN] - 09/21/21 10:00 am Activity:: See above Equipment/Supplies:: No Equipment Needed Diet:: As Tolerated Discharge Orders Discharge Orders: Discharge Order (Routine); Ordered 09/09/21 Ordered By: Nica Mackey [facility] All Active Problems (Updated 09/07/21 @ 18:10 by Randall Mcdaniel MD) Appendicitis (Acute) Abdominal pain (Acute) Medical History Head ache History of shingles Hyperlipidemia Neck pain No significant past medical history Urge incontinence Surgical History No significant past surgical history Social History Smoking/Tobacco Use Status: Former Tobacco Use Smoking risk assessment performed?: Yes Alcohol Intake: current Alcohol Intake frequency: a few times a week Drug use: Never Substance use type: does not use Current gender identity: female Do you feel safe at home: Yes Do you feel safe in your relationship?: Yes
--- NOTE | 2021-09-09 09:15 | W.PM.DS.N ---
DS: Diagnosis Discharge Diagnosis (1) Hyperlipidemia: (2) Appendicitis: Status: Acute Discharge Plan Disposition Patient Disposition: HOME Condition: Stable Discharge Details Reason For Visit: Appendicitis Admit Date/Time: 09/07/21 18:11 Admit Provider: Nica Mackey Attending Provider: Nica Mackey Primary Care Provider: Crissy,[facility] Course Hospital Course: 60 y/o female whom was originally seen by urgent care on Aug.21, had a CT scan which showed signs of early appendicitis. She was sent home with a 7 day course of antibiotics and follwed up in the office with Dr. Coffman on 09/07. She sent to the ER after being seen by Dr. Coffman in the surgical clinic for CT scan. CT scan showed acute appendicitis that was slightly improved. She was admitted to the surgical service, to proceed with surgical intervention. Patient underwent laparoscopic appendectomy with Dr. Coffman. Patient was kept over night for pain control and observation. She tolerated regular diet well. Pain was well controlled and she did not have any fevers overnight. She will be d/c home and follow up with Surgical Services in 2 weeks. Home Meds and New Rx's Prescriptions: New Bio-K plus 50 billion cell capsule,delayed release(DR/EC) 1 cap PO DAILY Qty: 30 RF: 0 tramadol [Ultram] 50 mg tablet 50 mg PO Q6H PRN (Reason: pain (scale score 7-10)) Qty: 7 RF: 0 Continued multivitamin [Daily Multi-Vitamin] 1 EACH tablet 1 ea PO DAILY RF: 0 calcium carbonate-vitamin D3 [Calcium 500 With D] 1 EACH tablet 1 ea PO DAILY RF: 0 Advil 100 mg Tablet 100 mg PO Q6H PRNRF: 0 Discharge Instructions Instructions: Laparoscopic Appendectomy (DC) Additional Instructions: Keep an ice bag on the incision. 20 minutes on and 20 minutes off. Ice keeps the swelling down and swelling causes pain. Make sure you wrap the ice pack in a towel and don't apply directly to the skin. -No driving for 72 hours or of you are taking narcotic pain medications. -Do Not remove purple skin glue that cover the incision. It will wear off. -Follow-up with Dr. Mackey in 1 week. -There are no dietary restrictions -no straining to move bowels -pain meds are very constipating: if you do not move your bowels daily take a dose of OTC milk of magnesia -It is ok to shower. No bathe, soaking, swimming or hot tubs -Keep wound clean and dry. Wash incision with soap and water daily. Pat dry, don't rub. -You may find that your appetite is smaller. Eat 3-6 small meals throughout the day. It is important to drink lots of water after surgery, 6-10 glasses a day. -We do want you up walking, at least 5-6 times per day. This is very important to prevent pneumonia and blood clots. You can climb stairs, take them slowly. -No lifting over 5 pounds. This is very important to avoid developing a hernia in your incision. -You may find that you are very tired after surgery- this is normal. -please do not smoke for a minimum of 72 hours after surgery. -Pain Plan ? MEDICATIONS: Alternate Tylenol 1000mg by mouth every 8 hours and Ibuprofen 600mg every 6 hours. Make sure you take ibuprofen with food and not on an empty stomach. Take the Tylenol and ibuprofen continuously for the first 72hrs- not just when you have pain. Use the tramadol for breakthrough pain. Use ICE! Twenty minutes on, and then off, continuously for the first 72hours. If you are taking narcotic pain medication, follow the instructions on the label and do not drive. Pain medications can make you very constipated. Make sure you are moving your bowels daily. If not, take Miralax, milk of magnesia or magnesium citrate. -Follow-up with Dr. Coffman in the clinic on 09/21 at 10 AM Stand Alone Forms: Nursing Discharge Form Referrals: Danya Coffman MD [ [facility] STAFF PHYSICIAN] - 09/21/21 10:00 am Activity:: See above Equipment/Supplies:: No Equipment Needed Diet:: As Tolerated Discharge Orders Discharge Orders: Discharge Order (Routine); Ordered 09/09/21 Ordered By: Nica Mackey DS: Summary Time Spent with Patient providing and/or coordinating discharge services: Less than 30 minutes Status at Discharge Functional status at discharge: independent ambulation Overall status at discharge: patient is progressing back to baseline Mental Status: mental status grossly normal Speech and Movement: speech and movement normal Mood: congruent mood Affect: normal affect Exam Psych Mental Status: mental status grossly normal Speech and Movement: speech and movement normal Mood: congruent mood Affect: normal affect DS: Data Vitals/I&O Vitals and I&O: Vital Signs Temperature 36.7 C 09/09/21 08:08 Temperature Source Tympanic 09/09/21 08:08 Pulse 57 L 09/09/21 08:08 Pulse Rhythm Regular 09/08/21 23:47 Respiratory Rate 16 09/09/21 08:08 Respiratory Effort Non-Labored 09/08/21 23:47 Respiratory Depth Normal 09/08/21 23:47 Respiratory Pattern Normal 09/08/21 23:47 Blood Pressure 116/70 09/09/21 08:08 Blood Pressure Position Sitting 09/07/21 15:50 Pulse Oximetry 98 09/09/21 08:08 Oxygen Delivery Method Room Air 09/09/21 08:08 Oxygen Flow Rate 0 09/09/21 08:08 Pain Level 3 09/09/21 08:08 Comment 09/08/21 23:57 Intake & Output 09/08/21 09/08/21 09/09/21 11:59 23:59 11:59 Intake Total 1200 / 2523.750 1323.750 / 2523.750 50 / 50 Output Total 300 / 1550 1250 / 1550 Balance 900 / 973.750 73.750 / 973.750 50 / 50 Weight 71.668 kg Intake: IV 1200 / 2523.750 1323.750 / 2523.750 50 / 50 Output: Urine 300 / 1550 1250 / 1550 Other: Urine Color Pale Pale Yellow Yellow Urine Appearance Clear Clear Urine Odor Normal Normal Comment 100 from before going to surgery and then 100 after surgery. Emesis Description None Voiding Methods Toilet Bedside Commode [facility] All Active Problems (Updated 09/07/21 @ 18:10 by Randall Mcdaniel MD) Appendicitis (Acute) Abdominal pain (Acute) Medical History Head ache History of shingles Hyperlipidemia Neck pain No significant past medical history Urge incontinence Surgical History No significant past surgical history Social History Smoking/Tobacco Use Status: Former Tobacco Use Smoking risk assessment performed?: Yes Alcohol Intake: current Alcohol Intake frequency: a few times a week Drug use: Never Substance use type: does not use Current gender identity: female Do you feel safe at home: Yes Do you feel safe in your relationship?: Yes
--- NOTE | 2021-09-09 15:54 | PDOC.CMDIS ---
- If Service Date Differs Date of service: 09/09/21 Time of Service: 15:54 LACE Index Scoring Tool - Questions: Length of Stay (in days): 2 Acuity (Admit via E.D.?): Yes E.D. Visits: 1 - Answers: Total Score: 6 Risk of Readmission: Low Risk Care Management Discharge Reason for Hospitalization: Appendicitis Discharge Plan: Zoe will be discharged home with no new services. She will follow up with her community providers and plan of care and transport with family. Patient/Family Education Needs: Review of discharge instructions, activity, follow up plan, and discuss Ask Me Three
== END 2021-09-09 11:05 | disposition home or self-care (01) | DRG 343 ==
LOC: ER 18:10 → MS 09-08 07:06
PROVIDERS: Surgery; Admitting Provider Surgery; Emergency Provider Emergency Medicine; PCP Family Medicine; Visit Provider Surgery
PROC: 0DTJ4ZZ Resection of Appendix, Percutaneous Endoscopic Approach (ICD-10-PCS; CPT 44970; principal; 2021-09-08 12:30)
DX: E78.5 Hyperlipidemia, unspecified; K35.80 Unspecified acute appendicitis; Z23 Encounter for immunization; N39.41 Urge incontinence; Z87.891 Personal history of nicotine dependence
CPT/HCPCS: 44970; 36415; 80053; 87635; 90686; 96361; 96365; 99284; 99285; 74177; 81003; 81015; 83605; 85025; 86140; 88304; J0131; J1100; J1885; J2001; J2250; J2405; J2543; J3490; Q9967